=== PATIENT | male | born 1975 | race Two or more races ===

== ENCOUNTER 2025-05-26 13:58 | Emergency (ER) | payer OTHER ==
[~2025-05-26] VITALS: Ht 172.7 cm; Wt 105.7 kg
[2025-05-26] MEDS ORDERED: DIOVAN40 MG PO (14:17)
[2025-05-26] MEDS ORDERED: TOPROL XL25 M1 PO (14:17)
[2025-05-26] MEDS ORDERED: KETOROLAC TROMETHAMINE 30 MG VIAL IM ONE (14:30)
[2025-05-26] MEDS ORDERED: ZANAFLEX4 M1 PO (18:50)
[2025-05-26] MEDS ORDERED: MEDROLPACK PO (18:50)
== END 2025-05-26 18:35 | disposition home or self-care (01) ==
LOC: ER 13:58
DX: M54.9 Dorsalgia, unspecified (principal); M51.369 Other intervertebral disc degeneration, lumbar region without mention of lumbar back pain or lower extremity pain; I10 Essential (primary) hypertension